=== PATIENT | female | born 1995 | race Caucasian/White ===

== ENCOUNTER 2020-11-24 04:23 | Observation (INO) ==
[2020-11-24] MEDS ORDERED: MoRPHine SULFATE 4 MG/ML 1 ML CARP\\VIAL IV STA (04:55)
[2020-11-24] MEDS: CYCLOBENZAPRINE HCL 5 MG TAB PO SCH ×2 (05:12→11:20)
[2020-11-24] MEDS ORDERED: ONDANSETRON INJ 2 MG/ML 2 ML VIAL IV PRN (05:59)
--- NOTE | 2020-11-24 05:59 | History & Physical Report ---
Date of Service November 24, 2020 Assessment & Plan (1) Flank pain in patient: Patient is a 25-year-old at 29 weeks of gestation with severe acute left-sided flank pain. No improvement with IV Tylenol, IV morphine. Vital signs stable afebrile heart rate reassuring No contractions on monitor and no signs or symptoms of labor. Ultrasound suggesting left kidney stone and moderate to severe right hydronephrosis with no ureteral jets seen. Plan to observe, monitor, pain management and consult urology. (2) Kidney stone on left side: (3) Hydronephrosis: History of Present Illness Primary Care Provider: NO PCP Patient is a 25-year-old G1, P0 at 29 weeks of gestation who woke up around midnight last night with severe left-sided flank pain. It has been constant and could not sleep. 04/20 She came to the ER and given IV Tylenol with minimal help. Pain came back. Renal ultrasound showed moderate to severe right hydronephrosis and 5 mm stone on left kidney. Ureteral jets were not seen. She was sent to labor and delivery for further monitoring and management of pain. She has a history of left kidney stone about 5 years ago but has not had issues since then. She denies pain with urination, blood in urine, fever chills, contractions, leakage of fluid nor vaginal bleeding. Last intercourse was 36 hours ago with no issues. She has only 1 partner. She reports good movements. Her has been uncomplicated. She has a history of panic attacks, she was using Paxil before but she stopped during and she has been doing well. She works as a customer service attendant for a company, she had sits all day at home in front of computer. She denies exertion, trauma or accidents. Allergies Allergy/AdvReac Type Severity Reaction Status Date / Time Iodinated Contrast Media Allergy Severe Anaphylaxis Verified 11/24/20 04:42 shellfish derived Allergy Severe Anaphylaxis Verified 11/24/20 04:42 Sulfa (Sulfonamide Allergy Unknown Hives Verified 11/24/20 04:42 Antibiotics) Home Medications Medication Instructions Recorded Confirmed Type 1 dose PO DAILY 11/24/20 11/24/20 History epinephrine [Epi E-Z Pen] 0.3 mg IM Q4H PRN 11/24/20 11/24/20 History Patient History Medical History No acute medical problems Surgical History No pertinent past surgical history Social History Smoking Status: Never smoker Hx Alcohol Use: No Hx Substance Use: No Preferred Language: [place] marital status: Feels Safe at Home: Yes Safety Concerns: Feels Safe At This Time [employer] History No h/o STD's Review of Systems All systems reviewed & are unremarkable except as noted in HPI & below Physical Exam Constitutional: WD/WN, vitals as above well developed, well nourished and + acute distress (she is talking comfortably and then gets very painful and moves in bed) Cardiovascular: RRR, no murmur, no edema Rate/Rhythm: regular rate Gastrointestinal (Abdomen): normal bowel sounds, soft, nontender, no hepatosplenomegaly Back: symmetric, CVAT on left side, no muscular tenderness noted. Genitourinary: normal external appearance Manual OB Exam: + cervical dilation (0), + cervical effacement (thick, firm) and + station high OB Exam Monitor Tracing: + external uterine monitor used (no ctxs) and + category I Results & Data ([facility]) Vital Signs (Past 12 Hours) Vital Signs Temp Pulse Resp BP 11/24/20 04:42 36.6 C 20 11/24/20 04:39 77 119/64 (1) Hydronephrosis Hydronephrosis type: unspecified Qualified Code(s): N13.30 - Unspecified hydronephrosis
[2020-11-24] MEDS ORDERED: LACTATED RINGER'S 1,000 ML IV SCH (06:00)
[2020-11-24] MEDS ORDERED: MoRPHine SULFATE 4 MG/ML 1 ML CARP\\VIAL IV PRN (07:00)
[2020-11-24] MEDS ORDERED: ACETAMINOPHEN 1,000 MG/100 ML VIAL IV STA (08:40)
--- NOTE | 2020-11-24 09:28 | Urology Consultation ---
Date of Consultation November 24, 2020 Assessment & Plan (1) Acute left flank pain: (2) Hydronephrosis: (3) Kidney stone on left side: 25 year-old female patient, currently 29 weeks , admitted with intractable left flank pain and bilateral hydronephrosis. -Plan of care reviewed with Dr. Vann. -Patient afebrile. -Labs reviewed - white count acceptable, creatinine normal. -Urine culture pending. -Renal US with bilateral hydronephrosis, right greater than left - can be normal variant with . -Discussed possible etiologies of pain including obstructing calculus versus musculoskeletal. -Recommend continued supportive care, hydration, pain control. -If pain becomes intolerable or if any acute changes in status/renal function, can offer noncontrast CT to evaluate for obstructing stones. -Risks/benefits of CT discussed with patient, she verbalizes understanding. -She prefers supportive care at this time with continued monitoring, plan is reasonable. -We will continue to monitor closely with primary service. Please consult our service urgently if patient develops fever >101F, intractable pain or nausea, as this will necessitate urgent surgical intervention. History of Present Illness Reason for Consultation: Kidney stone, hydronephrosis, flank pain Attending Physician: Jovita Wilkinson MD History of Present Illness 25 year-old female patient, currently 29 weeks , presented to the emergency room overnight with complaints of severe left flank pain with associated nausea/vomiting. Symptoms started around 11:00 pm last evening. The patient does have history of kidney stones, in which she was told were in her kidney. Does not have history of surgical intervention for stones nor spontaneous passage. She was admitted for further evaluation and treatment. Urology consulted for kidney stone, hydronephrosis, and left-sided flank pain. Past medical and surgical history reviewed. Patient reports she has not followed with urology in the past. Chart review: Afebrile Wbc 11.73 Hgb 11.7 Creatinine 0.88 Urinalysis reviewed - 5-10 wbc, >30 epithelial, +2 bacteria, negative nitrates. Urine culture pending. Imaging - Renal ultrasound: IMPRESSION: 1. There is right greater than left hydronephrosis, likely related to mass effect from the gravid uterus. An obstructing ureteral stone would be impossible to exclude. 2. The bladder was decompressed and could not be evaluated. 3. Question a small nonobstructing calculus in the interpolar left kidney. Patient examined at bedside. She is awake, alert, and non-toxic in appearance. She does continue to have left-sided flank pain. Pain is described as sharp/stabbing followed by a dull ache. Does also note left lower back and left hip discomfort. Pain does radiate down into her left lower leg. Denies abdominal pain. States she has not vomited since being in the ED. Nausea has improved. Feels the Tylenol has helped best with discomfort. Denies fevers or chills. Denies dysuria or hematuria. Denies urinary frequency/urgency. She has told she has kidney stones in her kidney in the past. No known passage of stones. States she does have aunts/uncles that have history of stones but denies immediate family history of stones. She does express that she would like to continue with supportive care at current time. Denies additional urologic concerns today. Allergies Allergy/AdvReac Type Severity Reaction Status Date / Time Iodinated Contrast Media Allergy Severe Anaphylaxis Verified 11/24/20 04:42 shellfish derived Allergy Severe Anaphylaxis Verified 11/24/20 04:42 Sulfa (Sulfonamide Allergy Unknown Hives Verified 11/24/20 04:42 Antibiotics) Home Medications Medication Instructions Recorded Confirmed Type 1 dose PO DAILY 11/24/20 11/24/20 History epinephrine [Epi E-Z Pen] 0.3 mg IM Q4H PRN 11/24/20 11/24/20 History Patient History Medical History No acute medical problems Surgical History No pertinent past surgical history Social History Smoking Status: Never smoker Hx Alcohol Use: No Hx Substance Use: No Preferred Language: [place] Citizen marital status: Feels Safe at Home: Yes Safety Concerns: Feels Safe At This Time Review of Systems Constitutional: as per Subjective / HPI; no fever and no chills Eyes: no problem reported Ear, Nose, Mouth, Throat: no dizziness Respiratory: no cough and no dyspnea Cardiovascular: no chest pain and no edema Gastrointestinal: as per Subjective / HPI Genitourinary: as per Subjective / HPI Musculoskeletal: as per Subjective / HPI Neurologic: no dizziness Endocrine: + fatigue Hematologic / Lymphatic: no easy bleeding and no easy bruising Physical Exam Constitutional: well developed and well nourished; no acute distress and not ill appearing ENMT: Ears: no external ear abnormality Nose: no external nose abnormality Neck: normal visual inspection and trachea midline Respiratory: normal respiratory effort and able to speak in complete sentences; no respiratory distress and no audible wheezes Cardiovascular: Extremities: no calf tenderness and no edema Gastrointestinal (Abdomen): Inspection/Auscultation: abdomen normal to inspection () Musculoskeletal: Moves all extremities without difficulty. Discomfort noted with palpation of left lateral hip. Skin: No visible rashes, lesions, or wounds noted. Neurologic: moves all extremities and awake Psychiatric: Orientation: alert, oriented x 3 and cooperative Affect: euthymic affect Genitourinary: no CVA tenderness Results & Data ([facility]) Vital Signs (Past 12 Hours) Vital Signs Temp Pulse Resp BP 11/24/20 08:30 18 11/24/20 08:00 20 11/24/20 07:30 36.7 C 16 11/24/20 07:29 91 H 129/66 11/24/20 04:42 36.6 C 11/24/20 04:39 77 119/64 PG Care Time/CCT Total # of Minutes Spent Total Time Spent with Patient: Total time spent is greater than 50% in coordination of care (as documented) at patient's floor/unit and/or counseling patient: Coding Level of Care Code 99542 Inpt Consult Level 4 Diagnoses Acute left flank pain R10.9 Hydronephrosis N13.30 Hydronephrosis type: unspecified Kidney stone on left side N20.0 (1) Hydronephrosis Hydronephrosis type: unspecified Qualified Code(s): N13.30 - Unspecified hydronephrosis
--- NOTE | 2020-11-24 11:59 | Obstetrical Progress Note ---
Date of Service November 24, 2020 Subjective Day of discharge note Patient seen and examined Urology consult reviewed and noted. Patient seems better now with IV Tylenol. She was able to tolerate diet without nausea or vomiting. Minimal flank pain with minimal CVA tenderness on left as compared to right. Will plan on discharge home and encourage to hydrate. Follow up if pain worsens and to keep follow up visit in office. Results & Data ([facility]) Vital Signs (Past 12 Hours) Vital Signs Temp Pulse Resp BP 11/24/20 11:15 36.7 C 11/24/20 11:00 18 11/24/20 10:30 18 11/24/20 10:00 18 11/24/20 09:00 20 11/24/20 08:30 18 11/24/20 08:00 11/24/20 07:30 36.7 C 11/24/20 07:29 91 H 129/66 11/24/20 04:42 36.6 C 11/24/20 04:39 77 119/64
--- NOTE | 2020-12-01 17:47 | Discharge Summary (DS) ---
REASON FOR ADMISSION AND HOSPITAL COURSE: The patient is a 25-year-old female 1, para 0, at 29 weeks with severe acute left-sided flank pain, admitted. Workup revealed possible kidney stone on the left side with bilateral hydronephrosis. Urology consult was obtained. They did not feel that this was a significant cause of her pain and any need to intervene at this point in time during the . She was given IV Tylenol with relief of pain. She was followed up the next day and pain has subsided and was discharged home in stable condition. Home going instructions were given. The patient to continue care. Follow up as needed for pain. Continue to hydrate and will see urology as needed.
== END 2020-11-24 13:30 | disposition home or self-care (01) ==
LOC: 4S1 04:23 → OPB 04:23 → 4S1 04:26